=== PATIENT | female | born 1990 | race American Indian/Alaskan Native ===

== ENCOUNTER 2020-06-09 10:56 | Emergency (ER) | payer MEDICAID ==
--- NOTE | 2020-06-09 11:15 | Emergency Department Report ---
Blank Doc - Documentation Documentation: 29-year-old female that presents with right upper abdominal pain with radiation to right flank. Pt is 10 weeks . Denies any vaginal bleeding. This initial assessment/diagnostic orders/clinical plan/treatment(s) is/are subject to change based on patient's health status, clinical progression and re- assessment by fellow clinical providers in the ED. Further treatment and workup at subsequent clinical providers discretion. Patient/guardians urged not to elope from the ED as their condition may be serious if not clinically assessed and managed. Initial orders include: 1- Patient sent to [facility] for further evaluation and treatment 2- labs 3- UA 4- US OB AND ABD
[2020-06-09 11:45] LABS: Bacteria,Urine 3+ /HPF (Negative); Bilirubin,Urine NEG (Negative); Blood,Urine NEG (Negative); Color,Urine Amber (Yellow); Mucus,Urine 3+ /HPF
[2020-06-09 11:58] LABS: Basophils % (Auto) 0.2 % (0.0-1.8); Hematocrit 37.9 % (30.3-42.9); Hemoglobin 13.7 gm/dl (10.1-14.3); Lymphocytes # (Auto) 1.8 K/mm3 (1.2-5.4); Lymphocytes % (Auto) 13.4 % (13.4-35.0); Mean Corpuscular HGB Conc 36 % (30-34); Mean Corpuscular Volume 92 fl (79-97); Monocytes # (Auto) 0.7 K/mm3 (0.0-0.8); Monocytes % (Auto) 5.5 % (0.0-7.3); Platelet Count 381 K/mm3 (140-440); Red Blood Count 4.14 M/mm3 (3.65-5.03); Red Cell Distribution Width 12.6 % (13.2-15.2)
[2020-06-09 12:22] LABS: Alanine Aminotransferase 19 units/L (7-56); Albumin 4.6 g/dL (3.9-5); Blood Urea Nitrogen 14 mg/dL (7-17); Calcium 10.2 mg/dL (8.4-10.2); Hemolysis Index 0
[2020-06-09 12:25] LABS: BUN/Creatinine Ratio 23
[2020-06-09] MEDS ORDERED: diphenhydrAMINE 50 MG/ML VIAL IV ONE (14:26)
[2020-06-09] MEDS ORDERED: SODIUM CHLORIDE 0.9% 1000 ML 1,000 ML IV ONE (14:26)
[2020-06-09] MEDS ORDERED: ACETAMINOPHEN 325 MG TAB PO ONE (14:26)
[2020-06-09] MEDS ORDERED: METOCLOPRAMIDE 10 MG/2 ML INJ IV ONE (14:26)
[2020-06-09] MEDS ORDERED: ALUM-MAG HYDROXIDE-SIMETHICONE 200-200-20MG/5ML ORAL LIQD 30 ML PO ONE (14:27)
--- NOTE | 2020-06-09 14:27 | Ultrasound Report ---
ULTRASOUND ABDOMEN, COMPLETE INDICATION: abdominal pain w/ . COMPARISON: No relevant prior imaging study available. FINDINGS: Pancreas: No significant abnormality. Abdominal Aorta: No significant abnormality. IVC: No significant abnormality. Liver: No significant abnormality. Normal hepatopedal blood flow in the main portal vein. Gallbladder: Gallbladder sludge/small gallstones.. Bile ducts: No significant abnormality. Common bile duct measures 3 mm. Kidneys: Right: No significant abnormality. Left: No significant abnormality. Spleen: No significant abnormality. Free fluid: None. Additional Findings: None. IMPRESSION: Mild gallbladder sludge/tiny gallstones noted. No gallbladder wall thickening appreciated. Signer Name: Misael Fisher MD Signed: 06/09/2020 2:22 PM Workstation Name: [id number]
--- NOTE | 2020-06-09 14:33 | Ultrasound Report ---
ULTRASOUND OBSTETRIC Indication: abdominal pain w/ Findings: There is a single, living intrauterine . [place]-rump length = 3.2 cm = 10 weeks, 1 day(s). heart rate is 168 beats per minute. The ovaries are normal. There is no free fluid. Impression: Single, living intrauterine with estimated sonographic age of 10 weeks, 1 day(s). Signer Name: Misael Fisher MD Signed: 06/09/2020 2:28 PM Workstation Name: [id number]
--- NOTE | 2020-06-09 14:37 | Emergency Department Report ---
ED Abdominal Pain HPI - General Chief Complaint: Abdominal Pain Stated Complaint: CHEST PAIN, ABD PAIN Time Seen by Provider: 06/09/20 11:14 Source: patient Mode of arrival: Ambulatory Limitations: No Limitations - History of Present Illness Initial Comments: Patient is a 29-year-old female presents emergency room with complaints of upper abdominal pain that began 3 days ago. She states that it feels like a burning sensation. She states that she feels like she has increased gas and has had increased belching. She states that she is also been having nausea vomiting throughout her but worse in the last 3 days. She states that she is not able to tolerate p.o. intake. She is currently 10 weeks . She states that her OB is at [facility]. She states that she has been taking Phenergan without much relief. She states her last menstrual cycle was March 31. She denies any fever, diarrhea, dysuria, vaginal bleeding. She does not report any vaginal discharge or irritation. She has a past medical history of hyperemesis and preeclampsia. No allergies to medications. G:/P: 2/A: 1 - Related Data Previous Rx's Medication Instructions Recorded Last Taken Type Mag Hydrox/Aluminum Hyd/Simeth 15 ml PO Q8HR PRN 7 Days #1 06/09/20 Unknown Rx [Maalox Advanced Suspension] oral.susp Metoclopramide [Reglan] 10 mg PO Q8HR PRN #12 tab 06/09/20 Unknown Rx cephALEXin [Keflex] 500 mg PO BID 7 Days #14 cap 06/09/20 Unknown Rx Allergies Allergy/AdvReac Type Severity Reaction Status Date / Time No Known Allergies Allergy Unverified 06/09/20 11:13 ED Review of Systems ROS: Stated complaint: CHEST PAIN, ABD PAIN Other details as noted in HPI Comment: All other systems reviewed and negative ED Past Medical Hx - Past Medical History Previous Medical History?: No - Surgical History Past Surgical History?: No - Medications Home Medications: Home Medications Medication Instructions Recorded Confirmed Last Taken Type Mag Hydrox/Aluminum Hyd/Simeth 15 ml PO Q8HR PRN 7 Days #1 06/09/20 Unknown Rx [Maalox Advanced Suspension] oral.susp Metoclopramide [Reglan] 10 mg PO Q8HR PRN #12 tab 06/09/20 Unknown Rx cephALEXin [Keflex] 500 mg PO BID 7 Days #14 cap 06/09/20 Unknown Rx ED Physical Exam - General Limitations: No Limitations General appearance: alert, in no apparent distress - Head Head exam: Present: atraumatic, normocephalic - Eye Eye exam: Present: normal appearance - ENT ENT exam: Present: mucous membranes moist - Respiratory Respiratory exam: Present: normal lung sounds bilaterally. Absent: respiratory distress, wheezes, rales, rhonchi, stridor, chest wall tenderness, accessory muscle use, decreased breath sounds, prolonged expiratory - Cardiovascular Cardiovascular Exam: Present: regular rate, normal rhythm, normal heart sounds. Absent: systolic murmur, diastolic murmur, rubs, gallop - GI/Abdominal GI/Abdominal exam: Present: soft, normal bowel sounds. Absent: distended, tenderness, guarding, rebound, rigid - Neurological Exam Neurological exam: Present: alert, oriented X3 - Psychiatric Psychiatric exam: Present: normal affect, normal mood - Skin Skin exam: Present: warm, dry, intact ED Course Vital Signs 06/09/20 11:12 Temperature 98.3 F Pulse Rate 78 Respiratory 18 Rate Blood Pressure 141/76 O2 Sat by Pulse 99 Oximetry ED Medical Decision Making - Lab Data Result diagrams: 06/09/20 11:25 06/09/20 11:25 Lab Results 06/09/20 06/09/20 06/09/20 Range/Units 11:25 11:25 11:25 WBC 13.4 H (4.5-11.0) K/mm3 RBC 4.14 (3.65-5.03) M/mm3 Hgb 13.7 (10.1-14.3) gm/dl Hct 37.9 (30.3-42.9) % MCV 92 (79-97) fl MCH 33 H (28-32) pg MCHC 36 H (30-34) % RDW 12.6 L (13.2-15.2) % Plt Count 381 (140-440) K/mm3 Lymph % (Auto) 13.4 (13.4-35.0) % [place] % (Auto) 5.5 (0.0-7.3) % Eos % (Auto) 0.0 (0.0-4.3) % Baso % (Auto) 0.2 (0.0-1.8) % Lymph # (Auto) 1.8 (1.2-5.4) K/mm3 [place] # (Auto) 0.7 (0.0-0.8) K/mm3 Eos # (Auto) 0.0 (0.0-0.4) K/mm3 Baso # (Auto) 0.0 (0.0-0.1) K/mm3 Seg Neutrophils % 80.9 H (40.0-70.0) % Seg Neutrophils # 10.8 H (1.8-7.7) K/mm3 Sodium 136 L (137-145) mmol/L Potassium 4.4 (3.6-5.0) mmol/L Chloride 97.3 L (98-107) mmol/L Carbon Dioxide 22 (22-30) mmol/L Anion Gap 21 mmol/L BUN 14 (7-17) mg/dL Creatinine 0.6 (0.6-1.2) mg/dL Estimated GFR > 60 ml/min BUN/Creatinine Ratio 23 % Glucose 93 (65-100) mg/dL Calcium 10.2 (8.4-10.2) mg/dL Total Bilirubin 0.30 (0.1-1.2) mg/dL AST 15 (5-40) units/L ALT 19 (7-56) units/L Alkaline Phosphatase 50 (35-129) units/L Total Protein 7.7 (6.3-8.2) g/dL Albumin 4.6 (3.9-5) g/dL Albumin/Globulin Ratio 1.5 % Lipase 20 (13-60) units/L HCG, Quant 213024 H (0-4) mIU/mL Urine Color (Yellow) Urine Turbidity (Clear) Urine pH (5.0-7.0) Ur Specific [place] (1.003-1.030) Urine Protein (Negative) mg/dL Urine Glucose (UA) (Negative) mg/dL Urine Ketones (Negative) mg/dL Urine Blood (Negative) Urine Nitrite (Negative) Urine Bilirubin (Negative) Urine Urobilinogen (<2.0) mg/dL Ur Leukocyte Esterase (Negative) Urine WBC (Auto) (0.0-6.0) /HPF Urine RBC (Auto) (0.0-6.0) /HPF U Epithel Cells (Auto) (0-13.0) /HPF Urine Bacteria (Auto) (Negative) /HPF Urine Mucus /HPF 06/09/20 Range/Units 11:32 WBC (4.5-11.0) K/mm3 RBC (3.65-5.03) M/mm3 Hgb (10.1-14.3) gm/dl Hct (30.3-42.9) % MCV (79-97) fl MCH (28-32) pg MCHC (30-34) % RDW (13.2-15.2) % Plt Count (140-440) K/mm3 Lymph % (Auto) (13.4-35.0) % [place] % (Auto) (0.0-7.3) % Eos % (Auto) (0.0-4.3) % Baso % (Auto) (0.0-1.8) % Lymph # (Auto) (1.2-5.4) K/mm3 [place] # (Auto) (0.0-0.8) K/mm3 Eos # (Auto) (0.0-0.4) K/mm3 Baso # (Auto) (0.0-0.1) K/mm3 Seg Neutrophils % (40.0-70.0) % Seg Neutrophils # (1.8-7.7) K/mm3 Sodium (137-145) mmol/L Potassium (3.6-5.0) mmol/L Chloride (98-107) mmol/L Carbon Dioxide (22-30) mmol/L Anion Gap mmol/L BUN (7-17) mg/dL Creatinine (0.6-1.2) mg/dL Estimated GFR ml/min BUN/Creatinine Ratio % Glucose (65-100) mg/dL Calcium (8.4-10.2) mg/dL Total Bilirubin (0.1-1.2) mg/dL AST (5-40) units/L ALT (7-56) units/L Alkaline Phosphatase (35-129) units/L Total Protein (6.3-8.2) g/dL Albumin (3.9-5) g/dL Albumin/Globulin Ratio % Lipase (13-60) units/L HCG, Quant (0-4) mIU/mL Urine Color [place] (Yellow) Urine Turbidity Slightly-cloudy (Clear) Urine pH 6.0 (5.0-7.0) Ur Specific [place] 1.038 H (1.003-1.030) Urine Protein 100 mg/dl (Negative) mg/dL Urine Glucose (UA) Neg (Negative) mg/dL Urine Ketones 80 (Negative) mg/dL Urine Blood Neg (Negative) Urine Nitrite Neg (Negative) Urine Bilirubin Neg (Negative) Urine Urobilinogen 2.0 (<2.0) mg/dL Ur Leukocyte Esterase Sm (Negative) Urine WBC (Auto) 9.0 H (0.0-6.0) /HPF Urine RBC (Auto) 10.0 (0.0-6.0) /HPF U Epithel Cells (Auto) 19.0 H (0-13.0) /HPF Urine Bacteria (Auto) 3+ (Negative) /HPF Urine Mucus 3+ /HPF - Radiology Data Radiology results: report reviewed ULTRASOUND OBSTETRIC Indication: abdominal pain w/ Findings: There is a single, living intrauterine . [place]-rump length = 3.2 cm = 10 weeks, 1 day(s). heart rate is 168 beats per minute. The ovaries are normal. There is no free fluid. Impression: Single, living intrauterine with estimated sonographic age of 10 weeks, 1 day(s). Signer Name: Misael Fisher MD Signed: 06/09/2020 2:28 PM Workstation Name: [id number] Transcribed By: RAFAEL Dictated By: Misael Fisher MD Electronically Authenticated By: Misael Fisher MD Signed Date/Time: 06/09/201427 DD/ 21 TD/TT: ULTRASOUND ABDOMEN, COMPLETE INDICATION: abdominal pain w/ . COMPARISON: No relevant prior imaging study available. FINDINGS: Pancreas: No significant abnormality. Abdominal Aorta: No significant abnormality. IVC: No significant abnormality. Liver: No significant abnormality. Normal hepatopedal blood flow in the main portal vein. Gallbladder: Gallbladder sludge/small gallstones.. Bile ducts: No significant abnormality. Common bile duct measures 3 mm. Kidneys: Right: No significant abnormality. Left: No significant abnormality. Spleen: No significant abnormality. Free fluid: None. Additional Findings: None. IMPRESSION: Mild gallbladder sludge/tiny gallstones noted. No gallbladder wall thickening appreciated. Signer Name: Misael Fisher MD Signed: 06/09/2020 2:22 PM Workstation Name: [id number] Transcribed By: RAFAEL Dictated By: Misael Fisher MD Electronically Authenticated By: Misael Fisher MD Signed Date/Time: 06/09/201421 DD/ 20 TD/TT: - Medical Decision Making Patient is a 29-year-old female presents emergency room with complaints of upper abdominal pain that began 3 days ago. She states that it feels like a burning sensation. She states that she feels like she has increased gas and has had increased belching. She states that she is also been having nausea vomiting throughout her but worse in the last 3 days. She states that she is not able to tolerate p.o. intake. She is currently 10 weeks . She states that her OB is at [facility]. She states that she has been taking Phenergan without much relief. She states her last menstrual cycle was March 31. She denies any fever, diarrhea, dysuria, vaginal bleeding. She does not report any vaginal discharge or irritation. She has a past medical history of hyperemesis and preeclampsia. No allergies to medications. G:/P: 2/A: 1. VSS. No abdominal tenderness on exam, no guarding, no rebound, no rigidity, normal bowel sounds, no peritoneal signs. Labs with mildly elevated white blood cell count and signs of dehydration. UA shows evidence of dehydration and UTI. OB US: Single, living intrauterine with estimated sonographic age of 10 weeks, 1 day(s). abdominal US: Mild gallbladder sludge/tiny gallstones noted. No gallbladder wall thickening appreciated. Patient given 1 L IV fluids, Reglan, Benadryl, Maalox, Tylenol and symptoms improved and patient was feeling much better. Patient was able to tolerate p.o. intake without any difficulty while in the emergency department. Discussed all results with patient and answered questions. Patient given prescription for Maalox, Reglan, Keflex. Advised patient Please take medication as prescribed. Please do not take this medication with Phenergan as they can interact. Increase your water intake over the next several days. Eat a bland liquid diet and slowly advance your diet as tolerated. Follow-up with your primary care doctor. Follow-up with your [facility]. Return to emergency room for any new or worsening symptoms. - Differential Diagnosis GERD, PUD, hyperemesis, dehydration, electrolyte, cholecystitis, cholelithi Critical care attestation.: If time is entered above; I have spent that time in minutes in the direct care of this critically ill patient, excluding procedure time. ED Disposition Clinical Impression: Hyperemesis, Gallbladder sludge GERD (gastroesophageal reflux disease) Qualifiers: Esophagitis presence: without esophagitis Qualified Code(s): K21.9 - Gastro- esophageal reflux disease without esophagitis Abdominal pain during Qualifiers: Trimester: first trimester Qualified Code(s): O26.891 - Other specified related conditions, first trimester UTI (urinary tract infection) Qualifiers: Urinary tract infection type: acute cystitis Hematuria presence: without hematuria Qualified Code(s): N30.00 - Acute cystitis without hematuria Disposition: TO HOME OR SELFCARE Is pt being admited?: No Does the pt Need Aspirin: No Condition: Stable Instructions: Hyperemesis Gravidarum (ED), Urinary Tract Infection in Women (ED), Diet for Ulcers and Gastritis (ED), Gastroesophageal Reflux Disease (ED), Abdominal Pain in (ED) Additional Instructions: Please take medication as prescribed. Please do not take this medication with Phenergan as they can interact. Increase your water intake over the next several days. Eat a bland liquid diet and slowly advance your diet as tolerated. Follow-up with your primary care doctor. Follow-up with your [facility]. Return to emergency room for any new or worsening symptoms. Prescriptions: cephALEXin [Keflex] 500 mg PO BID 7 Days #14 cap Mag Hydrox/Aluminum Hyd/Simeth [Maalox Advanced Suspension] 15 ml PO Q8HR PRN 7 Days #1 oral.susp PRN Reason: acid reflux Metoclopramide [Reglan] 10 mg PO Q8HR PRN #12 tab PRN Reason: Nausea And Vomiting Referrals: your, [facility] [Other] - 2-3 Days your, primary care doctor [Other] - 2-3 Days Time of Disposition: 16:01 Print Language: SYRIAN
[2020-06-09 18:40] VITALS: BP 124/72
== END 2020-06-09 12:15 | disposition home or self-care (01) ==
LOC: EDSEX → ED 10:56
DX: O23.41 Unspecified infection of urinary tract in pregnancy, first trimester (principal); O99.611 Diseases of the digestive system complicating pregnancy, first trimester; O21.0 Mild hyperemesis gravidarum; K82.8 Other specified diseases of gallbladder; K21.9 Gastro-esophageal reflux disease without esophagitis; Z3A.10 10 weeks gestation of pregnancy; Z79.899 Other long term (current) drug therapy
CPT/HCPCS: 36415; 76700; 76817; 80053; 81001; 83690; 84702; 85025; 87076; 87086; 87186; 96361; 96374; 96375; 99284; J1200; J2765; J7030

== ENCOUNTER 2020-06-10 13:13 | Emergency (ER) | payer MEDICAID | END 2020-06-10 14:00 | disposition left against medical advice (07) | LOC: ED 13:13 | DX: R11.2 Nausea with vomiting, unspecified (principal); Z53.21 Procedure and treatment not carried out due to patient leaving prior to being seen by health care provider ==